=== PATIENT | female | born 1970 | race Caucasian/White ===

== ENCOUNTER → 2023-07-14 07:57 | Outpatient (REF) | payer BC, SELFPAY | LOC: WDC 07:57 | PROVIDERS: ATTENDING PHYSICIAN Internal Medicine | DX: Z12.31 Encounter for screening mammogram for malignant neoplasm of breast (principal) | CPT/HCPCS: 77063; 77067 ==

== ENCOUNTER 2023-08-09 06:39 | Day surgery (SDC) | payer BC, SELFPAY ==
[2023-08-09] MEDS: NORMOSOL-R 1000 IV (08:03)
[2023-08-09 08:04] VITALS: BP 137/77
[2023-08-09 08:15] VITALS: BMI 31.5
[2023-08-09 10:37] VITALS: BP 112/69
[2023-08-09 10:40] VITALS: BP 112/69
[2023-08-09 10:45] VITALS: BP 119/72
[2023-08-09 11:00] VITALS: BP 118/97
[2023-08-09 11:15] VITALS: BP 120/82
== END 2023-08-09 11:32 | disposition home or self-care (01) ==
LOC: SDS 06:39
PROVIDERS: ATTENDING PHYSICIAN Orthopaedic Surgery Hand Surgery
DX: G56.02 Carpal tunnel syndrome, left upper limb (principal)
CPT/HCPCS: 64721

== ENCOUNTER → 2024-01-01 18:26 | Outpatient (REF) | payer BC, SELFPAY ==
[2024-01-01 18:51] LABS: % Eosinophils 0.8 % (0-6); % Immature Granulocytes 0.2 % (0-0.5); % Lymphocytes 30.4 % (20.5-51.1); % Neutrophils 57.6 % (42.2-75.2); Absolute Basophils 0.1 10^3/uL (0-0.2); Absolute Eosinophils 0.1 10^3/uL (0-0.7); Absolute Lymphocytes 1.8 10^3/uL (1.2-3.4); Absolute Monocytes 0.6 10^3/uL (0.1-0.6); Absolute Neutrophils 3.4 10^3/uL (1.4-6.5); Hematocrit 39.9 % (37.0-47.0); Hemoglobin 14.3 g/dL (12.0-16.0); Mean Corp Hgb Conc. 35.8 g/dL (33.0-37.0); Mean Corpuscular Hgb 30.4 pg (27.0-31.0); Mean Corpuscular Volume 84.7 fL (81.0-99.0); Mean Platelet Volume 9.6 fL (7.4-10.4); Nucleated Red Blood Cells % 0 %; Platelet Count 291 10^3/uL (130-400); Red Blood Cell Count 4.71 10^6/uL (4.20-5.40); Red Cell Dist. Width 12.2 % (11.5-14.5)
[2024-01-01 19:14] LABS: ALT (SGPT) 31 U/L (0-35); AST (SGOT) 34 U/L (14-36); Albumin 4.6 g/dl (3.5-5.0); Alkaline Phosphatase 65 U/L (38-126); Blood Urea Nitrogen 16 mg/dl (7-17); Calcium 9.7 mg/dl (8.4-10.2); Carbon Dioxide 24 mmol/L (22-30); Chloride 102 mmol/L (98-107); Glucose 96 mg/dl (70-99); HDL Cholesterol 85 mg/dl; LDL Cholesterol, Calculated 124 mg/dl; Potassium 4.4 mmol/L (3.5-5.1); Sodium 138 mmol/L (135-145); Total Cholesterol 224 mg/dl (50-199); Total Protein 7.3 g/dl (6.3-8.2); Triglyceride 78 mg/dl (10-149); Very Low Density Lipoprotein 15 mg/dl (0-30); eGFR > 60.00
[2024-01-01 19:32] LABS: Vitamin D, 25-OH*** 33.1 ng/mL (30-80)
[2024-01-01 19:46] LABS: TSH Reflex To Free T4 1.84 uIU/ml (0.47-4.68)
[2024-01-02 09:44] LABS: Glycohemoglobin (HgbA1c) 5.4 % (4.0-5.6)
[2024-01-04 11:00] LABS: CRP, Highly Sensitive 2.53 mg/L
== END ==
LOC: OLAB 18:26
PROVIDERS: Nurse Practitioner Primary Care; ATTENDING PHYSICIAN Internal Medicine
DX: Z00.00 Encounter for general adult medical examination without abnormal findings (principal); E78.2 Mixed hyperlipidemia; E03.8 Other specified hypothyroidism; E55.9 Vitamin D deficiency, unspecified
CPT/HCPCS: 80053; 80061; 82306; 83036; 84443; 85025; 86141

== ENCOUNTER 2024-07-18 06:16 | Day surgery (SDC) | payer BC, SELFPAY ==
[2024-07-18 09:49] VITALS: BMI 30.5
[2024-07-18 09:50] VITALS: BP 133/88
[2024-07-18 12:45] VITALS: BP 144/83
== END 2024-07-18 13:05 | disposition home or self-care (01) ==
LOC: SDS 06:16
PROVIDERS: ATTENDING PHYSICIAN Orthopaedic Surgery
DX: M65.4 Radial styloid tenosynovitis [de Quervain] (principal)
CPT/HCPCS: 25000